=== PATIENT | female | born 1960 | race Caucasian/White ===

== ENCOUNTER 2023-03-27 09:43 | Outpatient (REF) | payer MEDICARE, BC, SELFPAY ==
[2023-03-27 10:43] LABS: Appearance Urine Turbid (Clear); Bilirubin Urine Negative (Negative); Blood Urine 3+ (Negative); Color Urine Yellow (Yellow); Glucose Urine Negative (Negative); Ketones Urine Negative (Negative); Leukocyte Esterase Urine 3+ (Negative); Nitrite Urine Positive (Negative); Protein Urine 2+ (Negative); Specific Gravity Urine 1.025 (1.000-1.030)
[2023-03-27 10:54] LABS: Bacteria Urine Many; Squamous Epithelial Cell Urine Moderate (None-Few); WBC Urine >100 (0-5)
== END 2023-03-27 09:44 | disposition home or self-care (01) ==
LOC: NPINS 09:43
PROVIDERS: PCP Family Medicine; Visit Provider Nurse Practitioner Adult Health
DX: R30.0 Dysuria (principal)
CPT/HCPCS: 81001; 87086; 87186